=== PATIENT | male | born 1995 | race Caucasian/White ===

== ENCOUNTER → 2017-04-02 | Outpatient (CLI) | payer BC, OTHER ==
[~2017-04-02] MED LIST: [UNRECOGNIZED DRUG - CODE] INJ
--- NOTE | 2017-04-02 17:38 | DIAGNOSTIC IMAGING REPORT ---
MRI OF THE RIGHT ANKLE WITHOUT CONTRAST CLINICAL HISTORY: Osteoarthritis of right ankle. Persistent right ankle pain not responsive to conservative measures. History of hemophilia. COMPARISON STUDY: Right ankle radiographs March 15, 2016. TECHNIQUE: Utilizing a 1.5 Earlene magnet and dedicated coil, multiplanar, multiecho imaging of the right ankle was performed without intravenous or intraarticular contrast. FINDINGS: Alignment of the right ankle is anatomic. There is marked tibiotalar joint space narrowing which has progressed since right ankle radiographs of March 15, 2016 when allowing for differences in technique. There is moderate to marked edema within the adjacent distal right tibia as well as the talus. There is trace fluid within the joint space. Subchondral cystic foci are noted within the distal right tibia and the talus is noted and most pronounced within the medial talar dome. The findings suggest severe osteoarthritis, much greater than expected for age. There is a complex tibiotalar joint effusion which is small to moderate in size. There are T1 and T2 hypointense foci within the joint space which suggest hemosiderin given the history of hemophilia. The Achilles tendon is intact. There is minimal plantar calcaneal spurring. The flexor, extensor and peroneal tendons are intact. There is minimal edema adjacent to the tibiotalar joint. No mass or fluid collection is identified. There is no suspicious marrow replacement. IMPRESSION: Severe arthritis of the tibiotalar joint with marked joint space narrowing, adjacent marrow edema and subchondral cystic change most pronounced within the medial talar dome. Associated tibiotalar joint effusion which contains suspected hemosiderin given the history of hemophilia. 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 Electronically signed by: Robert Capps M.D. 04/02/2017 5:37 PM Dictated Date/Time: 04/02/2017 5:23 PM
== END | disposition home or self-care (01) ==
LOC: C.MRI 16:10
PROVIDERS: ATTEND Family Medicine
DX: M19.071 Primary osteoarthritis, right ankle and foot (principal); D66 Hereditary factor VIII deficiency